=== PATIENT | male | born 1950 | race Caucasian/White ===

== ENCOUNTER 2016-03-10 09:38 | Observation (INO) | payer MEDICARE ==
[~2016-03-10] VITALS: Ht 167.6 cm; Wt 71.6 kg
--- NOTE | 2016-03-10 10:12 | RADRPT ---
PROCEDURE: XR Chest. CLINICAL INDICATION: Chest pain. TECHNIQUE: Single frontal portable chest was obtained. COMPARISON: None available.. FINDINGS: Cardiomediastinal silhouette appears normal There are atherosclerotic calcifications in the thoracic aorta. Pulmonary vasculature appears normal. Lung young appear clear. Costophrenic angles are well defined. There are mid sternotomy wires from previous open heart surgery. The osseous elements appear intact. IMPRESSION: 1. Atherosclerotic calcifications in the thoracic aorta. 2. No evidence for active cardiopulmonary disease. RPTAT: [facility] Physician Jens Date Time Electronically viewed and signed by Sebas Mccord Physician on 03/10/2016 10:12 /
[2016-03-10 10:22] LABS: BASOPHILS % 0.4 % (0.0-2.0); EOSINOPHILS # 0.1 10^3/ul (0.0-0.5); EOSINOPHILS % 1.9 % (0.0-7.0); HEMATOCRIT 45.9 % (42.0-52.0); HEMOGLOBIN 15.6 g/dl (14.0-18.0); LYMPHOCYTES # 2.2 10^3/ul (0.8-2.9); LYMPHOCYTES % 29.1 % (15.0-51.0); MEAN CORPUSCULAR HEMOGLOBIN 29.8 pg (29.0-33.0); MEAN CORPUSCULAR VOLUME 87.7 fl (82.0-101.0); MEAN PLATELET VOLUME 10.1 fl (7.4-10.4); MONOCYTE # 0.6 10^3/ul (0.3-0.9); MONOCYTES % 7.3 % (0.0-11.0); NEUTROPHIL # 4.6 10^3/ul (1.6-7.5); NEUTROPHILS % 61.3 % (39.0-77.0); PLATELET COUNT 219 10^3/UL (140-440); RED BLOOD COUNT 5.23 10^6/ul (4.70-6.10); RED CELL DISTRIBUTION WIDTH 14.7 % (11.5-14.5); UNCORRECTED WBC 7.6 10^3/ul (4.8-10.8); WHITE BLOOD COUNT 7.6 10^3/ul (4.8-10.8)
[2016-03-10 10:23] LABS: CONDITION 1; LH ANALYZER COMMENTS 1
[2016-03-10 10:31] LABS: POTASSIUM 4.9 mmol/L (3.5-5.1)
[2016-03-10 10:34] LABS: CREATININE 0.81 mg/dl (0.61-1.24)
[2016-03-10 10:35] LABS: CALCIUM 9.5 mg/dl (8.4-10.2)
[2016-03-10 10:37] LABS: INR 0.95; PARTIAL THROMBOPLASTIN TIME 26.2 Sec (25.0-35.0); PROTIME 12.7 Sec (12.2-14.2)
[2016-03-10 10:46] LABS: TROPONIN-I 0.012 ng/ml (0.00-0.12)
--- NOTE | 2016-03-10 10:53 | ERA ---
ER Documentation Chief Complaint Date/Time DATE: 03/10/16 TIME: 10:51 Chief Complaint cp x last night (6-7 nitros) HPI 65-year-old male presents to the emergency department by ambulance complaining of chest pain. Patient is non-Hong Konger speaking limiting history. Patient was in his usual state of health until last night at which time he developed a spontaneous, non-provoked chest discomfort. He took 6-7 nitroglycerin without significant effect. The pain continued through the course of the morning and the ambulance was called. Patient is unable to express radiation onset or other significant details of the chest pain. I have reviewed the grain combiner pre-hospital care. Pre-hospital vital signs were reviewed. Pre-hospital diagnostic tests were reviewed. Upon arrival, patient states the pain is mild to moderate. ROS All systems reviewed and are negative except as per history of present illness. PMhx/Soc History of Surgery: Yes (bipass ) Anesthesia Reaction: No Hx Neurological Disorder: No Hx Respiratory Disorders: No Hx Cardiac Disorders: Yes (htn, CAD) Hx Psychiatric Problems: No Hx Miscellaneous Medical Probl: No Hx Alcohol Use: No Hx Substance Use: No Hx Tobacco Use: No (quit 2 months ago) Smoking Status: Former smoker FmHx Noncontributory for chief complaint Physical Exam Vitals Vital Signs Date Time Temp Pulse Resp B/P Pulse Ox O2 Delivery O2 Flow Rate FiO2 03/10/16 09:40 97.9 109 20 142/98 98 Physical Exam GENERAL: The patient is well developed and appropriate for usual state of health in no apparent distress HEENT: Pupils equal, round, and reactive to light. EOMI. There is no scleral icterus. NECK: C-spine is soft and supple, there is no meningismus. There is no cervical lymphadenopathy. LUNGS: Clear to auscultation bilaterally. There are no rales, wheezes or rhonchi. HEART: Regular rate and rhythm, no murmurs, clicks, rubs or gallops. ABDOMEN: Soft, non-tender, non-distended. There are bowel sounds in all four quadrants. No rebound or guarding. EXTREMITIES: There is no peripheral cyanosis or edema. No focal swelling or erythema. NEURO: The patient moves all four extremities with 5/5 strength. Cranial nerves II - XII are intact. Normal gait. Alert and oriented SKIN: There is no apparent rash or petechiae. HEME/LYMPHATIC: There is no evidence of excessive bruising or lymphedema. PSYCHIATRIC: The patient does not appear anxious or depressed. Result Diagram: 03/10/1695003/10/1651 Results 24 hrs Laboratory Tests Test 03/10/16 09:51 Activated Partial Thromboplast Time 26.2Sec Anion Gap 15 Basophils # 0.010^3/ul Basophils % 0.4% Blood Morphology Comment Blood Urea Nitrogen 34mg/dl Calcium Level 9.5mg/dl Carbon Dioxide Level 31mmol/L Chloride Level 98mmol/L Creatinine 0.81mg/dl Eosinophils # 0.110^3/ul Eosinophils % 1.9% Glucose Level 108mg/dl Hematocrit 45.9% Hemoglobin 15.6g/dl INR International Normalized Ratio 0.95 Lymphocytes # 2.210^3/ul Lymphocytes % 29.1% Mean Corpuscular Hemoglobin 29.8pg Mean Corpuscular Hemoglobin Concent 34.0g/dl Mean Corpuscular Volume 87.7fl Mean Platelet Volume 10.1fl Monocytes # 0.610^3/ul Monocytes % 7.3% Neutrophils # 4.610^3/ul Neutrophils % 61.3% Nucleated Red Blood Cells # 0.010^3/ul Nucleated Red Blood Cells % 0.0/100WBC Platelet Count 14634^3/UL Potassium Level 4.9mmol/L Prothrombin Time 12.7Sec Prothrombin Time Ratio 1.0 Red Blood Count 5.2310^6/ul Red Cell Distribution Width 14.7% Sodium Level 139mmol/L Troponin I 0.012ng/ml White Blood Count 7.610^3/ul Procedures/MDM Patient was taken to a room, seen and evaluated. Comfort measures were initiated. Diagnostic tests were ordered and reviewed. 3 LEAD RHYTHM STRIP: Normal sinus rhythm without ectopy 12 lead EKG interpreted by myself: Rate/rhythm: Normal sinus rhythm [place]/intervals: Normal Ischemia: Nonspecific ST and T-wave changes with no ST elevation Impression: Nonspecific EKG RADIOLOGY: reviewed with the radiologist CONSULTATION: hospitalist was notified for admission REEVALUATION: Patient remained hemodynamically stable MEDICAL DECISION MAKING: Patient presents with chest pain of uncertain etiology. Differential diagnosis considered includes acute myocardial infarction , pulmonary embolism, as well as vascular and pulmonary concerns. I have reviewed the patients clinical risk factors, EKG, lab studies and imaging. At this time, patient has concerning risk for ischemic heart disease. His first troponin is reassuring. He appears comfortable. He will be admitted for further observation, risk stratification. Departure Diagnosis: Primary Impression: Chest pain Condition: BERNIE Virgen Mar 10, 2016 10:53
[2016-03-10] MEDS ORDERED: AMLO-147 PO (10:55)
[2016-03-10] MEDS ORDERED: LOSA1TAB21 PO (10:55)
[2016-03-10] MEDS ORDERED: CARV12.579 PO (10:55)
[2016-03-10] MEDS ORDERED: TAMS0.4C2 PO (10:56)
[2016-03-10] MEDS ORDERED: LORA0.5T PO (10:57)
[2016-03-10] MEDS ORDERED: BECL8.7A INH (10:57)
[2016-03-10] MEDS ORDERED: ASPI-664 PO (10:58)
[2016-03-10] MEDS ORDERED: PARO-37 PO (10:58)
[2016-03-10] MEDS ORDERED: OMEP20CA16 PO (10:58)
[2016-03-10] MEDS ORDERED: ISOS60TA PO (10:59)
[2016-03-10] MEDS ORDERED: DOCUSATE SODIUM 100 MG CAP PO PRN (11:00)
[2016-03-10] MEDS ORDERED: ACETAMINOPHEN 325 MG TAB PO PRN (11:00)
[2016-03-10] MEDS ORDERED: NITROGLYCERIN (SL) 0.4 MG TAB SL PRN (11:00)
[2016-03-10] MEDS ORDERED: ALBU8.5H3 INH (11:00)
[2016-03-10] MEDS ORDERED: NACL 0.9% 3 ML SYG IV SCH (11:00)
[2016-03-10] MEDS ORDERED: ONDANSETRON 4 MG TAB PO PRN (11:00)
[2016-03-10] MEDS ORDERED: TRAM-40 PO (11:01)
[2016-03-10] MEDS ORDERED: TIOT4MIS4 INHALATION (11:02)
[2016-03-10] MEDS ORDERED: ROSU20TA PO (11:03)
[2016-03-10] MEDS ORDERED: ALBUTEROL HFA 8 GM INHALER INH PRN (16:30)
[2016-03-10] MEDS ORDERED: LORAZEPAM 0.5 MG TAB PO PRN (16:30)
[2016-03-10] MEDS ORDERED: traMADol 50 MG TAB PO PRN (16:30)
[2016-03-10 17:12] LABS: CK-MB 1.14 ng/ml (0.0-2.4)
[2016-03-10 17:12] LABS: TROPONIN-I 0.014 ng/ml (0.00-0.12)
[2016-03-10 17:30] VITALS: TEMP 97.9
--- NOTE | 2016-03-10 18:08 | HP ---
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 CHIEF COMPLAINT: Chest pressure and bilateral shoulder pain. HISTORY OF PRESENT ILLNESS: This is a 65-year-old gentleman with past medical history of coronary a rtery disease status post CABG, bypass, dyslipidemia, hypertension, asthma, depression, BPH and arth ritis who presents to [facility] secondary to having 1 to 2 weeks of bilateral his shoulder pain with chest pressure. Also having difficulty with ambulation secondary to having shor tness of breath upon activity. There has not been paroxysmal nocturnal dyspnea. No headache, dizzi ness, lightheadedness. No change in visual acuity, diplopia, photophobia. No numbness, no change i n lower extremity edema. No abdominal pain. No heat and cold intolerance. No recent travel histor y. No sick contact, no cough, congestion or any other discomfort except what was stated above. Up on arrival to emergency room, the patient's EKG showed sinus rhythm with PACs of ventricle 69. No a cute ST elevation or depression, no sign of ischemia. PAST MEDICAL AND SURGICAL HISTORY: 1. Coronary artery disease. 2. CABG. 3. Dyslipidemia. 4. Hypertension. 5. COPD. 6. Depression. 7. BPH. 8. Osteoarthritis. MEDICATIONS 1. ProAir HFA. 2. Amlodipine 10 mg. 3. Aspirin 81 mg 4. Qvar 40. 5. Carvedilol 12.5 mg. 6. Losartan 100 mg 7. Hydrochlorothiazide 12.5 mg 8. Silver nitrate 90 mg 9. Lorazepam 0.5 mg. 10. Omeprazole 20 mg. 11. Paxil 20 mg. 12. Crestor 20 mg. 13. Flomax 0.8 mg. 14. Stiolto breathing treatment. 15. Tramadol 50 mg. ALLERGIES: NO KNOWN DRUG ALLERGIES. FAMILY HISTORY: Positive for history of coronary artery disease. SOCIAL HISTORY: Positive for history of smoking. She quit about 2 months ago. No alcohol, no illi cit drugs. REVIEW OF SYSTEMS: As above per HPI, otherwise 12 review of systems has been found to be negative. PHYSICAL EXAMINATION: VITAL SIGNS: Temperature 97.9, pulse 70, respiration 20, blood pressure 127/79, oxygen saturation 9 6% in room air. GENERAL APPEARANCE: Patient is lying in bed comfortably without any distress. He is awake, alert, oriented. He is able to answer my questions properly. EYES AND ENT: Conjunctivae and lids are normal. Pupils are normal. Extraocular normal. Hearing g rossly normal. Lips are normal. Oral mucosa is moist. NECK: Supple. Trachea is midline. No lymphadenopathy. RESPIRATORY: Effort is normal. Clear to auscultate bilaterally. CARDIOVASCULAR: Normal S1, S2. Regular rhythm and rate. No murmur, no bruits, no edema. Peripher al pulses, radial pulses palpable. Cap refill is normal. CHEST: Normal expansion of thorax during inspiration. GASTROINTESTINAL: Abdomen is soft, nontender, not distended. Bowel sounds present. No guarding, n o rebound. GENITOURINARY: Deferred. MUSCULOSKELETAL: Upper and lower extremities within normal limits. Full range of motion. No CVA t enderness upon palpation of the bilateral shoulders and anterior thorax. The pain is reproducible. NEUROLOGIC: Cranial nerves II through XII are grossly intact. PSYCHIATRIC: Normal judgment and insight. Alert and oriented x3. Mood and affect is normal. LABORATORY WORK AND IMAGING: WBC 7.6, hemoglobin 15.3, hematocrit 45.9, platelets 219. Sodium 139, potassium 4.9, chloride 98, bicarbonate 31, BUN 34, creatinine 0.81, glucose 108, calcium 9.5. Tro ponin negative. PT 12.7. Chest x-ray showed atherosclerotic calcification in the thoracic aorta, n o evidence of active cardiopulmonary disease. ASSESSMENT AND PLAN: 1. Atypical chest pain with a history of coronary artery disease and coronary artery bypass graft. Continue beta zachary, aspirin and statin. Cardiology has been consulted. We will follow serial t roponins, obtain a 2D echocardiogram. Follow cardiology recommendation for possible stress test vaibhav jamia left heart catheterization if indicated. 2. Dyslipidemia. Continue statin. Follow lipid panel in a.m. 3. Essential hypertension, well controlled on medical management. 4. Chronic obstructive pulmonary disease continue breathing treatment. We will place the patient o n oxygen to keep the oxygen saturation above 94%. 5. Major depression. Continue Paxil. 6. Gastroesophageal reflux disease. Continue proton pump inhibitor. 7. Anxiety. Continue lorazepam p.r.n. 8. Benign prostatic hypertrophy. Continue Flomax. 9. We will continue to monitor patient closely. Further recommendations, management and treatment as per clinical course. 10. For gastrointestinal prophylaxis on proton pump inhibitor. 11. For deep venous thrombosis prophylaxis on Lovenox. Total amount of time was spent for evaluation of patient and admission workup 45 minutes. Dictated By: YVES HUDDLESTON/NTS Conf#: [id number] DID#: [id number]
[2016-03-10] MEDS: ATORVASTATIN 80 MG TAB PO SCH (20:52)
[2016-03-10] MEDS: TAMSULOSIN (SR) 0.4 MG CAP PO SCH (20:52)
[2016-03-10] MEDS: MOMETASONE 0.24 GM INHALER INH SCH (20:54)
[2016-03-10 21:30] VITALS: BP 143/82; PULSE 75; RESP 16
[2016-03-10 21:40] LABS: CREATINE KINASE 85 IU/L (23-200)
[2016-03-10 21:46] VITALS: PULSE 72
[2016-03-10 21:52] LABS: CK-MB 1.08 ng/ml (0.0-2.4)
[2016-03-10 22:00] VITALS: Ht 167.6 cm; Wt 71.6 kg
[2016-03-10 22:05] LABS: TROPONIN-I < 0.010 ng/ml (0.00-0.12)
[2016-03-10] MEDS: morphine 2 MG INJ IV PRN (23:32)
[2016-03-11] VITALS (12 sets, daily range): BP systolic 105–144; BP diastolic 60–83; PULSE 64–87; RESP 16–63
[2016-03-11 07:14] LABS: BASOPHILS % 0.5 % (0.0-2.0); EOSINOPHILS # 0.1 10^3/ul (0.0-0.5); EOSINOPHILS % 1.4 % (0.0-7.0); HEMATOCRIT 46.9 % (42.0-52.0); HEMOGLOBIN 15.7 g/dl (14.0-18.0); LYMPHOCYTES # 2.1 10^3/ul (0.8-2.9); LYMPHOCYTES % 25.3 % (15.0-51.0); MEAN CORPUSCULAR HEMOGLOBIN 29.7 pg (29.0-33.0); MEAN CORPUSCULAR HGB CONC 33.5 g/dl (32.0-37.0); MEAN CORPUSCULAR VOLUME 88.6 fl (82.0-101.0); MEAN PLATELET VOLUME 9.4 fl (7.4-10.4); MONOCYTE # 0.6 10^3/ul (0.3-0.9); NEUTROPHIL # 5.5 10^3/ul (1.6-7.5); NEUTROPHILS % 65.8 % (39.0-77.0); PLATELET COUNT 227 10^3/UL (140-440); RED BLOOD COUNT 5.29 10^6/ul (4.70-6.10); RED CELL DISTRIBUTION WIDTH 14.8 % (11.5-14.5); UNCORRECTED WBC 8.4 10^3/ul (4.8-10.8); WHITE BLOOD COUNT 8.4 10^3/ul (4.8-10.8)
[2016-03-11 07:18] LABS: CONDITION 1; LH ANALYZER COMMENTS 1
[2016-03-11] MEDS: PANTOPRAZOLE (EC) 40 MG TAB PO SCH (07:25)
[2016-03-11 07:36] LABS: CREATININE 0.89 mg/dl (0.61-1.24)
[2016-03-11 07:37] LABS: CALCIUM 9.6 mg/dl (8.4-10.2); CHOL/HDL RATIO 7.1 RATIO; MAGNESIUM 2.1 mg/dl (1.7-2.5)
[2016-03-11 08:01] LABS: THYROID STIMULATING HORMONE 2.39 MIU/L (0.465-4.680)
[2016-03-11] MEDS: AMLODIPINE 10 MG TAB PO SCH (08:06)
[2016-03-11] MEDS: ASPIRIN (EC) 81 MG TAB PO SCH (08:07)
[2016-03-11] MEDS: PAROXETINE 20 MG TAB PO SCH (08:07)
[2016-03-11] MEDS: LOSARTAN 50 MG TAB PO SCH (08:08)
[2016-03-11] MEDS: ENOXAPARIN 40 MG/0.4 ML SYG SC SCH (08:10)
[2016-03-11] MEDS: MOMETASONE 0.24 GM INHALER INH SCH ×2 (08:12→20:56)
[2016-03-11] MEDS ORDERED: ASPIRIN 81 MG TAB PO SCH (09:00)
[2016-03-11] MEDS ORDERED: NON-FORMULARY/PATIENT OWN MED (Tiotropium Br/Olodaterol HCl (Stiolto Respimat Inhal Spray) XX SCH (09:00)
[2016-03-11] MEDS ORDERED: FAMOTIDINE 20 MG TAB PO SCH (09:00)
[2016-03-11] MEDS ORDERED: ISOSORBIDE MONONITRATE(SR)60 MG TAB PO SCH (09:00)
--- NOTE | 2016-03-11 12:40 | PN ---
Date/Time of Note Date/Time of Note DATE: 03/11/16 TIME: 12:33 Assessment/Plan VTE Prophylaxis VTE Prophylaxis Intervention: LMWH Lines/Catheters IV Catheter Type (from Nrsg): Saline Lock Assessment/Plan Assessment/Plan 1. Chest pain with both shoulder pain, negative troponins, follow up with cardiology 2. CAD/CABG 18 years ago, follow up with cardiology 3. Dyslipidemia, on statin 4. Essential hypertension, controlled 6. Chronic obstructive pulmonary disease, stable 6. Gastroesophageal reflux disease. Continue proton pump inhibitor. 7. Major depression, Anxiety disorder, stable, on paxil 8. Benign prostatic hypertrophy. Continue Flomax. 9. For gastrointestinal prophylaxis on proton pump inhibitor. 10. For deep venous thrombosis prophylaxis on Lovenox. Subjective 24 Hr Interval Summary Free Text/Dictation CABG 18 years ago still has both shoulder pain with frontal chest pressure No shortness of breath Exam/Review of Systems Vital Signs Vitals Vital Signs Date Time Temp Pulse Resp B/P Pulse Ox O2 Delivery O2 Flow Rate FiO2 03/11/16 12:17 68 03/11/16 11:59 97.5 63 107/60 96 03/11/16 04:00 Nasal Cannula 2.0 Intake and Output 03/10/16 03/10/16 03/11/16 15:00 23:00 07:00 Intake Total 0 ml Balance 0 ml Exam Constitutional: alert, oriented, well developed Psych: nl mood/affect, no complaints Head: atraumatic, normocephalic Eyes: EOMI, PERRL, nl conjunctiva, nl lids, nl sclera ENMT: mucosa pink and moist, nl external ears & nose, nl lips & teeth, nl nasal mucosa & septum Neck: non-tender, supple Respiratory: clear to auscultation, normal air movement Cardiovascular: nl pulses, regular rate and rhythm Gastrointestinal: nl liver, spleen, non-tender, soft Musculoskeletal: nl extremities to inspection, nl gait and stance Extremities: normal pulses Neurological: FLYER BUILDER II-XII intact, nl mental status, nl speech Skin: nl turgor, rash or lesions Lymph: nl lymph nodes Results Result Diagram: 03/11/16 0645 03/11/16 0645 Results 24 hrs Laboratory Tests Test 03/10/16 16:30 03/10/16 21:20 03/11/16 06:45 Creatine Kinase 99 85 Creatine Kinase Index 1.0 1.3 Creatinine Kinase MB (Mass) 1.00 1.08 Troponin I 0.014 < 0.010 Anion Gap 16 Basophils # 0.0 Basophils % 0.5 Blood Morphology Comment Blood Urea Nitrogen 32 H Calcium Level 9.6 Carbon Dioxide Level 30 Chloride Level 97 Cholesterol Level 250 H Cholesterol/HDL Ratio 7.1 Creatinine 0.89 Eosinophils # 0.1 Eosinophils % 1.4 Glucose Level 105 HDL Cholesterol 35 Hematocrit 46.9 Hemoglobin 15.7 LDL Cholesterol, Calculated 174 Lymphocytes # 2.1 Lymphocytes % 25.3 Magnesium Level 2.1 Mean Corpuscular Hemoglobin 29.7 Mean Corpuscular Hemoglobin Concent 33.5 Mean Corpuscular Volume 88.6 Mean Platelet Volume 9.4 Monocytes # 0.6 Monocytes % 7.0 Neutrophils # 5.5 Neutrophils % 65.8 Nucleated Red Blood Cells # 0.0 Nucleated Red Blood Cells % 0.0 Platelet Count 227 Potassium Level 5.0 Red Blood Count 5.29 Red Cell Distribution Width 14.8 H Sodium Level 138 Thyroid Stimulating Hormone (TSH) 2.390 Triglycerides Level 204 H White Blood Count 8.4 Medications Medications Current Medications Ondansetron HCl (Zofran Tab) 4 mg Q6H PRN PO NAUSEA AND/OR VOMITING; Start 12/15 at 11:00 Nitroglycerin (Nitroglycerin (Sl Tab) 0.4 Mg) 1 tab Q5M PRN SL CHEST PAIN Last administered on 03/11/16 03:24; Admin Dose 1 TAB; Start 03/10/16 at 11:00 Acetaminophen (Tylenol Tab) 650 mg Q6H PRN PO PAIN LEVEL 1-3 OR FEVER; Start at 11:00 Morphine Sulfate (morphine) 1 mg Q4H PRN IV PAIN LEVEL 7-10 Last administered on 03/10/16 23:32; Admin Dose 1 MG; Start 03/10/16 at 11:00 Docusate Sodium (Colace) 100 mg Q12H PRN PO CONSTIPATION; Start 03/10/16 at 11: 00 Enoxaparin Sodium (Lovenox) 40 mg DAILY SC Last administered on 03/11/16 08:10 ; Admin Dose 40 MG; Start 03/11/16 at 09:00 Albuterol (Ventolin Hfa) 2 puff Q4H PRN INH WHEEZING AND SOB; Start 03/10/16 at 16:30 Amlodipine Besylate (Norvasc) 10 mg DAILY PO Last administered on 03/11/16 08: 06; Admin Dose 10 MG; Start 03/11/16 at 09:00 Aspirin (Halfprin) 81 mg DAILY PO Last administered on 03/11/16 08:07; Admin Dose 81 MG; Start 03/11/16 at 09:00 Carvedilol (Coreg) 12.5 mg BID PO Last administered on 03/11/16 08:07; Admin Dose 12.5 MG; Start 03/10/16 at 21:00 Isosorbide Mononitrate (Imdur) 60 mg DAILY PO Last administered on 03/11/16 08 :07; Admin Dose 60 MG; Start 03/11/16 at 09:00 Lorazepam (Ativan) 0.5 mg DAILY PRN PO ANXIETY; Start 03/10/16 at 16:30 Paroxetine HCl (Paxil) 20 mg DAILY PO Last administered on 03/11/16 08:07; Admin Dose 20 MG; Start 03/11/16 at 09:00 Tamsulosin HCl (Flomax) 0.4 mg HS PO Last administered on 03/10/16 20:52; Admin Dose 0.4 MG; Start 03/10/16 at 21:00 Tramadol HCl (Ultram) 50 mg DAILY PRN PO PAIN; Start 03/10/16 at 16:30 Mometasone Furoate (Asmanex) 1 puff BID INH Last administered on 03/11/16 08: 12; Admin Dose 1 PUFF; Start 03/10/16 at 21:00 Atorvastatin Calcium (Lipitor) 80 mg QHS PO Last administered on 03/10/16 20: 52; Admin Dose 80 MG; Start 03/10/16 at 21:00 Miscellaneous Information 2 puff DAILY INHALATION ; Start 03/11/16 at 09:00; Status UNV Losartan Potassium (Cozaar) 50 mg DAILY PO Last administered on 03/11/16 08:08 ; Admin Dose 50 MG; Start 03/11/16 at 09:00 SIVA GARCIA MD Mar 11, 2016 12:40
[2016-03-11] MEDS ORDERED: REGADENOSON 0.4 MG/5 ML SYG ONE (13:24)
--- NOTE | 2016-03-11 15:38 | RADRPT ---
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 Physician: YVES HERNANDEZ Quality: Technically Difficult Study Procedures: Transthoracic echocardiogram with complete 2D, M-Mode, and doppler examination. Indications: Chest Pain. 2D/M Mode Doppler Measurement Value Normal Ranges Measurement Value Normal Ranges LVIDd 2D 5.1 3.5 - 5.6 cm AV Peak Michael 1.3 m/sec LVIDs 2D 2.8 2.1 - 4.1 cm AV Peak PG 6.0 mmHg FS 2D 45.6 % LVOT Peak Michael 1.1 m/sec LVPWd 2D 0.8 0.6 - 1.1 cm LVOT Peak PG 5.0 mmHg IVSd 2D 0.7 0.6 - 1.1 cm MV E Peak Michael 0.8 m/sec IVS/LVPW 2D 1.0 MV A Peak Michael 0.6 m/sec AoR Diam 2D 2.8 2.0 - 3.7 cm MV E/A 1.4 LA/Ao 2D 1 0 - 1 MV Decel Time 162 msec EDV 2D 130.0 cm3 MV E/A 1.4 ESV 2D 21.0 cm3 TR Peak Michael 2.2 m/sec LA Dimen 2D 3.5 2.3 - 4.0 cm TR Peak PG 20.0 mmHg RVSP 28.0 mmHg Findings Left Ventricle: Normal left ventricular cavity size. Normal left ventricular wall thickness. Ejection fraction is visually estimated at 4550 %. These segments of the LV are hypokinetic mid septum segment and septum base segment. Right Ventricle: Normal right ventricular size. Normal right ventricular systolic function. Left Atrium: The left atrium is normal in size. Right Atrium: The right atrium is normal in size. Mitral Valve: Normal appearance and function of the mitral valve with trace physiologic regurgitation. Aortic Valve: No significant aortic stenosis or insufficiency. Aortic cusps appear mildly calcified. Tricuspid Valve: Normal appearance and function of the tricuspid valve with trace physiologic regurgitation. Normal right ventricular systolic pressure. Pericardium: Normal pericardium with no significant pericardial effusion. Aorta: Normal aortic root. IVC: Dilated IVC with respiratory collapse consistent with elevated right atrial pressure. Conclusions 1.Normal left ventricular cavity size. Normal left ventricular wall thickness. Ejection fraction is visually estimated at 45-50 %. These segments of the LV are hypokinetic mid septum segment and septum base segment. 2.Normal appearance and function of the mitral valve with trace physiologic regurgitation. 3.Normal appearance and function of the tricuspid valve with trace physiologic regurgitation. Normal right ventricular systolic pressure. Electronically Signed By: Jose Baum 11-Mar-2016 15:37:46 -0800 Patient Name: JESSICA JOHN Study Date: 10-Mar-[id number]
[2016-03-11] MEDS: ISOSORBIDE DINITRATE 10 MG TAB PO SCH ×2 (16:45→20:59)
--- NOTE | 2016-03-11 17:07 | RADRPT ---
PROCEDURE: Lexiscan myocardial perfusion study CLINICAL INDICATION: 65 -year-old patient complaining of chest pain. TECHNIQUE: Lexiscan 0.4 mg intravenously separate acquisition gated myocardial perfusion SPECT usi ng Tc 99m Myoview 32.2 mCi intravenously at stress and Tc-99m Myoview, 10.4 mCi intravenously at res t was performed using the rest/stress sequence. Poststress Myoview SPECT images were obtained in th e supine position. COMPARISON: No prior studies. FINDINGS: Perfusion images reveal no evidence of perfusion defects. Lexiscan post stress gated SPECT images demonstrate no wall motion abnormalities. IMPRESSION: 1. No evidence of perfusion defects. 2. No wall motion abnormalities. 3. The left ventricle ejection fraction at stress is 60%. A call report was made to Dr. Baum at 05:00 p.m. on March 11, 2016. RPTAT: HH .Jessica White MD, Date Time Electronically viewed and signed by .Jessica White MD, MD on 03/11/2016 17:07 .L/
--- NOTE | 2016-03-11 18:12 | CONS ---
DATE OF ADMISSION: 03/10/2016 DATE OF CONSULTATION: 03/11/2016 CARDIOLOGY CONSULTATION REASON FOR CONSULTATION: Chest pain, dyspnea on exertion. REQUESTING PHYSICIAN: Yves Hernandez MD from the hospitalist service. HISTORY OF PRESENT ILLNESS: Mr. Sarmiento is a 65-year-old male with history of coronary artery dis ease, status post coronary bypass graft surgery, dyslipidemia, hypertension, asthma, depression, BPH , who initially presented with complaints of 1 to 2 weeks of worsening chest pain described as a edis st pressure, worse with exertion and associated shoulder pain. Additionally, the patient has signif icant dyspnea on exertion. Upon arrival in the emergency department, temperature 97.9, blood pressu re 142/98, pulse 109, respiratory rate 20, saturating 98%. The patient's labs revealed a sodium of 139, potassium 4.9, creatinine 0.8, BUN of 34. Troponin negative. White blood cell count 7.6, hemo globin 15.6, platelet count of 219. INR 0.95. The patient underwent a chest x-ray revealing athero sclerotic calcifications of thoracic aorta, no evidence of active cardiopulmonary disease. The stephanie ent's electrocardiogram revealed sinus rhythm at a rate of 69, occasional PVCs with nonspecific ST a nd T wave abnormalities. The patient subsequently admitted to the floor and since admit to the [facility] has had 2 additional negative troponins, ruling him out for acute myocardial infarction. The stephanie ent continues to have intermittent chest pain. PAST MEDICAL HISTORY: As above in HPI. MEDICATIONS CURRENTLY IN HOSPITAL: 1. Lovenox subcutaneously daily. 1. Norvasc 10 mg daily. 2. Aspirin 81 mg daily. 3. Imdur 60 mg daily. 4. Paxil 20 mg daily. 5. Losartan 50 mg daily. 6. Carvedilol 12.5 mg p.o. b.i.d. 7. Flomax 0.4 mg at bedtime. 8. Beclomethasone one puff b.i.d. 9. Lipitor 80 mg at bedtime. 10. Albuterol. 11. Ativan. 12. Tylenol p.r.n. 13. Morphine p.r.n. 13. Colace p.r.n. ALLERGIES: NO KNOWN DRUG ALLERGIES. SOCIAL HISTORY: Positive tobacco, quit x2 months. No ETOH or illicit drug use. FAMILY HISTORY: No history of sudden cardiac or early CAD. REVIEW OF SYSTEMS: As above in HPI. CONSTITUTIONAL: No fevers, chills. PULMONARY: Intermittent dyspnea on exertion. CARDIOVASCULAR: Chest pain. GASTROINTESTINAL: No vomiting. GENITOURINARY: No hematuria. MUSCULOSKELETAL: Degenerative joint disease. PSYCHIATRIC: The patient denies depression. NEUROLOGIC: No documented history of CVA. PHYSICAL EXAMINATION VITAL SIGNS: Temperature of 97.9, blood pressure 129/89, pulse 71, saturating 97%. GENERAL: The patient is alert, awake, in no acute distress. NECK: JVP approximately 8 cm water. CHEST: Fair air movement throughout. HEART: Regular rate and rhythm. Normal S1, S2. A I/ systolic murmur, nondisplaced PMI. ABDOMEN: Positive bowel sounds, soft. EXTREMITIES: No pitting edema, 1+ pulses bilaterally posterior tibial. LABORATORY DATA: As above in HPI, with most recent from today, sodium 138, potassium 5.0, creatinin e 0.8, BUN 32. LDL 134, HDL 35. White blood cell count 8.4, hemoglobin 15.7, platelet count 227. I NR 0.95. IMAGING STUDIES: As above in HPI. No further imaging studies for my review at this time. ECG: As above in HPI. No further electrocardiograms for my review at this time. IMPRESSION: 1. Chest pain, assess for acute coronary syndrome with negative troponins x3 at this time. 2. Abnormal electrocardiogram, assess for acute coronary syndrome. 2. Hypertension, under reasonable control. 3. Dyslipidemia. 4. History of coronary artery disease, status post coronary artery bypass grafting multiple years p rior. RECOMMENDATIONS: 1. At this time, would maintain the patient on telemetry monitoring to follow rhythm and rate close ly. 2. Continue the patient's aspirin prophylaxis against cardiovascular events. 3. Continue the patient's current losartan, Norvasc and carvedilol for control of blood pressure an d heart rate. 4. Continue the patient's current statin therapy, given significantly elevated LDL, at high dose. 5. We will followup the patient's 2D echo. 6. The patient is scheduled for cardiac stress test in order to assess for the possibility of recur rent significant obstructive symptoms of chest pain and dyspnea on exertion. Thank you for allowing me to take part in the care of this patient. I will continue to follow very closely with you with further recommendations to be made as the patient progresses through his [facility] clinical course. Dictated By: DEBRA VARGAS/VIVI Conf#: [id number] DID#: [id number] CC: YVES HERNANDEZ MD;*EndCC*
[2016-03-11] MEDS: TAMSULOSIN (SR) 0.4 MG CAP PO SCH (20:56)
[2016-03-11] MEDS: ATORVASTATIN 80 MG TAB PO SCH (20:57)
[2016-03-12] VITALS (9 sets, daily range): BP systolic 111–134; BP diastolic 66–75; PULSE 56–65; RESP 18–20
[2016-03-12] MEDS: morphine 2 MG INJ IV PRN (06:04)
[2016-03-12] MEDS: PANTOPRAZOLE (EC) 40 MG TAB PO SCH (08:36)
[2016-03-12] MEDS: AMLODIPINE 10 MG TAB PO SCH (08:36)
[2016-03-12] MEDS: PAROXETINE 20 MG TAB PO SCH (08:36)
[2016-03-12] MEDS: MOMETASONE 0.24 GM INHALER INH SCH (08:37)
[2016-03-12] MEDS: ASPIRIN (EC) 81 MG TAB PO SCH (08:37)
[2016-03-12] MEDS: ENOXAPARIN 40 MG/0.4 ML SYG SC SCH (08:57)
[2016-03-12] MEDS: ISOSORBIDE DINITRATE 10 MG TAB PO SCH ×2 (09:00→12:16)
--- NOTE | 2016-03-12 09:41 | CARRPT ---
DATE OF PROCEDURE: 03/11/2016 PROCEDURE: Lexiscan Cardiolite stress test. INDICATION: Chest pain, shortness of breath, assess for ischemia. BASELINE VITAL SIGNS AND ELECTROCARDIOGRAM: Pulse 63, blood pressure 101/72. Electrocardiogram revealed at baseline sinus rhythm, rate of 78, normal axis, normal intervals with frequent PACs, nonspecific ST and T abnormalities. PROCEDURE: The patient underwent standard Lexiscan infusion protocol over 10 seconds followed by ra diolabeled tracer. The patient's test was stopped due to completion of protocol. Maximal achieved blood pressure during the test 124/72, maximal heart rate during the test 83. ELECTROCARDIOGRAM FINDINGS: The patient did not develop any new Lexiscan-induced ST or T-wave carranza es from baseline abnormalities. No documented ____. Positive frequent PVCs. SYMPTOMS: The patient had mild shortness breath during stress test that resolved in recovery. IMPRESSION: 1. No Lexiscan-induced ST or T-wave changes from baseline abnormalities that are diagnostic of card iac ischemia. 2. No complaints of chest pain but positive shortness breath during stress test that resolved in re covery. 3. No documented premature ventricular contractions during stress test. 4. Report of nuclear images to follow in separate dictation. Dictated By: DEBRA VARGAS/VIVI Conf#: [id number] DID#: [id number] CC: YVES HERNANDEZ MD;*End*
[2016-03-12] MEDS: LOSARTAN 50 MG TAB PO SCH (12:16)
--- NOTE | 2016-03-12 12:35 | CONS ---
Date/Time of Note Date/Time of Note DATE: 03/12/16 TIME: 12:31 Assessment/Plan Assessment/Plan Chief Complaint/Hosp Course IMPRESSION: 1. Chest pain, assess for acute coronary syndrome with negative troponins x3 at this time/NL EF by echo. Lexiscan no ischemia this admission/NL EF 2. Abnormal electrocardiogram, assess for acute coronary syndrome. 2. Hypertension, under reasonable control. 3. Dyslipidemia. 4. History of coronary artery disease, status post coronary artery bypass grafting multiple years prior. Recc: -Tele -Continue current BB/ARB/ccb/oral nitrates newly started with slight increase given recurrent sx -Continue asa/statin -D/C planning if stable with outpatient f/u 2 weeks Problems: Consultation Date/Type/Reason Admit Date/Time Mar 10, 2016 at 10:51 Initial Consult Date 03/11/2016 Type of Consultation: Cardiology Reason for Consultation Chest pain Referring Provider: JONATHON GIL Exam/Review of Systems Vital Signs Vitals Vital Signs Date Time Temp Pulse Resp B/P Pulse Ox O2 Delivery O2 Flow Rate FiO2 03/12/16 11:21 98.2 56 20 119/75 91 03/11/16 14:45 Room Air 03/11/16 04:00 2.0 Intake and Output 03/11/16 03/11/16 03/12/16 15:00 23:00 07:00 Intake Total 1000 ml 500 ml Balance 1000 ml 500 ml Exam Review of Systems: CONSTITUTIONAL: No fevers, chills. PULMONARY: No sob CARDIOVASCULAR: No chest pain/palpitations GASTROINTESTINAL: No nausea/vomiting. GENITOURINARY: No hematuria/dysuria. MUSCULOSKELETAL: No myagias/arthalgias. PSYCHIATRIC: The patient denies depression. NEUROLOGIC: No weakness Constitutional: alert Psych: no complaints Head: normocephalic ENMT: mucosa pink and moist Neck: jvd (8 cm water), supple Respiratory: diminished breath sounds Cardiovascular: regular rate and rhythm Gastrointestinal: non-tender, soft Musculoskeletal: muscle tone Extremities: edema (none) Neurological: other (No focal deficits) Results Result Diagram: 03/11/16 0645 03/11/16 0645 Medications Medications Current Medications Ondansetron HCl (Zofran Tab) 4 mg Q6H PRN PO NAUSEA AND/OR VOMITING; Start 12/15 at 11:00 Nitroglycerin (Nitroglycerin (Sl Tab) 0.4 Mg) 1 tab Q5M PRN SL CHEST PAIN Last administered on 03/11/16 03:24; Admin Dose 1 TAB; Start 03/10/16 at 11:00 Acetaminophen (Tylenol Tab) 650 mg Q6H PRN PO PAIN LEVEL 1-3 OR FEVER; Start at 11:00 Morphine Sulfate (morphine) 1 mg Q4H PRN IV PAIN LEVEL 7-10 Last administered on 03/12/16 06:04; Admin Dose 1 MG; Start 03/10/16 at 11:00 Docusate Sodium (Colace) 100 mg Q12H PRN PO CONSTIPATION; Start 03/10/16 at 11: 00 Enoxaparin Sodium (Lovenox) 40 mg DAILY SC Last administered on 03/12/16 08:57 ; Admin Dose 40 MG; Start 03/11/16 at 09:00 Albuterol (Ventolin Hfa) 2 puff Q4H PRN INH WHEEZING AND SOB; Start 03/10/16 at 16:30 Amlodipine Besylate (Norvasc) 10 mg DAILY PO Last administered on 03/12/16 08: 36; Admin Dose 10 MG; Start 03/11/16 at 09:00 Aspirin (Halfprin) 81 mg DAILY PO Last administered on 03/12/16 08:37; Admin Dose 81 MG; Start 03/11/16 at 09:00 Carvedilol (Coreg) 12.5 mg BID PO Last administered on 03/12/16 08:37; Admin Dose 12.5 MG; Start 03/10/16 at 21:00 Lorazepam (Ativan) 0.5 mg DAILY PRN PO ANXIETY; Start 03/10/16 at 16:30 Paroxetine HCl (Paxil) 20 mg DAILY PO Last administered on 03/12/16 08:36; Admin Dose 20 MG; Start 03/11/16 at 09:00 Tamsulosin HCl (Flomax) 0.4 mg HS PO Last administered on 03/11/16 20:56; Admin Dose 0.4 MG; Start 03/10/16 at 21:00 Tramadol HCl (Ultram) 50 mg DAILY PRN PO PAIN; Start 03/10/16 at 16:30 Mometasone Furoate (Asmanex) 1 puff BID INH Last administered on 03/12/16 08: 37; Admin Dose 1 PUFF; Start 03/10/16 at 21:00 Atorvastatin Calcium (Lipitor) 80 mg QHS PO Last administered on 03/11/16 20: 57; Admin Dose 80 MG; Start 03/10/16 at 21:00 Miscellaneous Information 2 puff DAILY INHALATION ; Start 03/11/16 at 09:00; Status UNV Losartan Potassium (Cozaar) 50 mg DAILY PO Last administered on 03/12/16 12:16 ; Admin Dose 50 MG; Start 03/11/16 at 09:00 Isosorbide Dinitrate (Isordil) 10 mg TID PO Last administered on 03/12/16 12: 16; Admin Dose 10 MG; Start 03/11/16 at 13:00 DEBRA PHILLIP Mar 12, 2016 12:35
[2016-03-12] MEDS ORDERED: ISOSORBIDE DINITRATE 20 MG TAB PO SCH ×2 (13:00→21:00)
[2016-03-12] MEDS ORDERED: RANOLAZINE (SR) 500 MG TAB PO SCH (13:30)
--- NOTE | 2016-03-12 14:04 | DS ---
Date/Time of Note Date/Time of Note DATE: 03/12/16 TIME: 14:01 Discharge Summary Admission/Discharge Info Admit Date/Time Mar 10, 2016 at 10:51 Discharge Date/Time Final Diagnosis 1. Chest pain with both shoulder pain, negative stress thallium test, follow up with cardiology 2. CAD/CABG 18 years ago, follow up with cardiology 3. Dyslipidemia, on statin 4. Essential hypertension, controlled 6. Chronic obstructive pulmonary disease, stable 6. Gastroesophageal reflux disease. Continue proton pump inhibitor. 7. Major depression, Anxiety disorder, stable, on paxil 8. Benign prostatic hypertrophy. Continue Flomax. Patient Condition: Stable Procedures [place] [id number] Radiology Main Line: [phone] DIAGNOSTIC IMAGING REPORT Patient: JESSICA JOHN : 1950 Age: 65 Sex: M MR #: [id number] DOS: 03/11/16 0000 Ordering MD: DEBRA BAUM MD Location: [facility] Room/Bed: [facility] PROCEDURE: Lexiscan myocardial perfusion study CLINICAL INDICATION: 65 -year-old patient complaining of chest pain. TECHNIQUE: Lexiscan 0.4 mg intravenously separate acquisition gated myocardial perfusion SPECT using Tc 99m Myoview 32.2 mCi intravenously at stress and Tc-99m Myoview, 10.4 mCi intravenously at rest was performed using the rest/stress sequence. Poststress Myoview SPECT images were obtained in the supine position. COMPARISON: No prior studies. FINDINGS: Perfusion images reveal no evidence of perfusion defects. Lexiscan post stress gated SPECT images demonstrate no wall motion abnormalities. IMPRESSION: 1. No evidence of perfusion defects. 2. No wall motion abnormalities. 3. The left ventricle ejection fraction at stress is 60%. A call report was made to Dr. Baum at 05:00 p.m. on March 11, 2016. RPTAT: HH .Jessica White MD, MD Date Time Electronically viewed and signed by .Jessica White MD, MD on 03/11/2016 17:07 .L/ CC: DEBRA BAUM of Present Illness HISTORY OF PRESENT ILLNESS: This is a 65-year-old gentleman with past medical history of coronary artery disease status post CABG, bypass, dyslipidemia, hypertension, asthma, depression, BPH and arthritis who presents to [facility] secondary to having 1 to 2 weeks of bilateral his shoulder pain with chest pressure. Also having difficulty with ambulation secondary to having shortness of breath upon activity. There has not been paroxysmal nocturnal dyspnea. No headache, dizziness, lightheadedness. No change in visual acuity, diplopia, photophobia. No numbness, no change in lower extremity edema. No abdominal pain. No heat and cold intolerance. No recent travel history. No sick contact, no cough, congestion or any other discomfort except what was stated above. Upon arrival to emergency room, the patient's EKG showed sinus rhythm with PACs of ventricle 69. No acute ST elevation or depression, no sign of ischemia. Hospital Course Patient has negative troponin. Stress thallium test is negative. Patient will follow up with PCP and cardiology in two weeks. Home Meds Reported Medications Rosuvastatin Calcium* (Crestor*) 20 Mg Tablet, 20 MG PO QHS, #30 TAB 03/10/16 Tiotropium Br/Olodaterol HCl (Stiolto Respimat Inhal [place]) 4 Gm Mist.inhal, 2 PUFF INHALATION DAILY, #1 INHALER 03/10/16 Tramadol Hcl* (Ultram*) 50 Mg Tablet, 50 MG PO DAILY Y for PAIN, TAB 03/10/16 Albuterol Sulfate* (Proair HFA*) 8.5 Gm Hfa.aer.ad, 2 PUFF INH Q4H Y for WHEEZING AND SOB, #1 INHALER 03/10/16 Isosorbide Mononitrate* (Isosorbide Mononitrate*) 60 Mg Tab.er.24h, 90 MG PO DAILY, TAB 03/10/16 Omeprazole* (Omeprazole*) 20 Mg Capsule.dr, 20 MG PO AC BREAKFAST, #30 CAP 03/10/16 Paroxetine Hcl* (Paroxetine*) 20 Mg Tablet, 20 MG PO DAILY, TAB 03/10/16 Aspirin* (Aspirin* EC) 81 Mg Tablet.dr, 81 MG PO DAILY, TAB 1/10/17 Lorazepam* (Lorazepam*) 0.5 Mg Tablet, 0.5 MG PO DAILY Y for ANXIETY, TAB 03/10/16 Beclomethasone Dip* (Qvar 40*) 7.3 Gm Inha, 2 PUFF INH BID, #1 INHALER 03/10/16 Tamsulosin Hcl* (Tamsulosin Hcl*) 0.4 Mg Cap.er.24h, 0.8 MG PO HS, CAP 03/10/16 Carvedilol* (Carvedilol*) 12.5 Mg Tablet, 12.5 MG PO BID, #60 TAB 03/10/16 Losartan-Hydrochlorothiazide (Losartan-HCTZ) 100-12.5 Mg Tab, 1 TAB PO DAILY, TAB 03/10/16 Amlodipine Besylate* (Amlodipine Besylate*) 10 Mg Tablet, 10 MG PO DAILY, #30 TAB 03/10/16 Follow-up Plan cardiology and PCP 2 weeks SIVA GARCIA MD Mar 12, 2016 14:04
[2016-03-12] MEDS ORDERED: ISOSORBIDE DINITRATE 10 MG TAB PO SCH (14:15)
[2016-03-12] MEDS ORDERED: TIOTROPIUM XX SCH (14:30)
[2016-03-12] MEDS ORDERED: OLODATEROL XX SCH (14:30)
== END 2016-03-12 16:10 | disposition home or self-care (01) ==
LOC: E/R 09:38 → TEL 10:51
PROVIDERS: ADMIT Family Medicine; ATTEND Family Medicine
DX: R07.89 Other chest pain (principal); M25.512 Pain in left shoulder; M25.511 Pain in right shoulder; I25.10 Atherosclerotic heart disease of native coronary artery without angina pectoris; Z95.1 Presence of aortocoronary bypass graft; E78.5 Hyperlipidemia, unspecified; I10 Essential (primary) hypertension; J44.9 Chronic obstructive pulmonary disease, unspecified; K21.9 Gastro-esophageal reflux disease without esophagitis; F32.9 Major depressive disorder, single episode, unspecified; F41.9 Anxiety disorder, unspecified; N40.0 Benign prostatic hyperplasia without lower urinary tract symptoms; J45.909 Unspecified asthma, uncomplicated; M19.90 Unspecified osteoarthritis, unspecified site; Z87.891 Personal history of nicotine dependence; Z79.82 Long term (current) use of aspirin; Z82.49 Family history of ischemic heart disease and other diseases of the circulatory system
CPT/HCPCS: 36415; 71010; 78452; 80048; 80061; 82550; 82553; 83735; 84443; 84484; 85025; 85610; 85730; 93005; 93017; 93306; 99285; A9500; A9505; G0378; J1650; J2270; J2785; 99217

== ENCOUNTER 2017-12-04 00:31 | Inpatient (IN) | END 2017-12-05 14:35 | disposition home or self-care (01) | DRG 189 ==